=== PATIENT | female | born 1955 | race Caucasian/White ===

== ENCOUNTER 2019-11-29 22:44 | Emergency (ER) | payer MEDICARE ==
[~2019-11-29] VITALS: Ht 152.4 cm; Wt 68.0 kg
[~2019-11-29 22:44] MED LIST: CLARITIN10 M3 PO; Z.0.NEURONTIN100 MG PO
--- OUTSIDE RECORDS SUMMARY | 2019-11-29 22:48 | XMS REPORT ---
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 Allergies, Adverse Reactions, Alerts This patient has no known allergies or adverse reactions. Medications This patient has no known medications.
== END 2019-11-29 23:18 | disposition home or self-care (01) ==
LOC: FSED 22:44
DX: K52.9 Noninfective gastroenteritis and colitis, unspecified (principal); E03.9 Hypothyroidism, unspecified

== ENCOUNTER 2022-04-28 12:26 | Emergency (ER) | payer MEDICARE, OTHER ==
[~2022-04-28] VITALS: Ht 152.4 cm; Wt 63.5 kg
[2022-04-28] MEDS ORDERED: BROMFED DM COU118 ML PO (13:39)
== END 2022-04-28 13:44 | disposition home or self-care (01) ==
LOC: FSED 12:40
DX: R05.9 Cough, unspecified (principal); U07.1 COVID-19; J20.9 Acute bronchitis, unspecified; E03.9 Hypothyroidism, unspecified; Z86.12 Personal history of poliomyelitis
CPT/HCPCS: 71046; 83518; 87400; 99283

== ENCOUNTER 2022-12-12 09:58 | Emergency (ER) | payer MEDICARE, OTHER ==
[~2022-12-12] VITALS: Ht 152.4 cm; Wt 65.8 kg
[~2022-12-12 09:58] MED LIST changes: +BROMFED DM COU118 ML PO
[2022-12-12] MEDS ORDERED: BENZONATATE200 MG PO (10:56)
[2022-12-12] MEDS ORDERED: DEXAMETHASONE SOD PHOS 10 MG/1 ML VIAL IM ONE ×2 (11:00)
[2022-12-12] MEDS ORDERED: DEXAMETHASONE SOD PHOS INJ 4 MG/ML SDV ONE (11:12)
[2022-12-12] MEDS ORDERED: ONDANSETRON ODT4 MG PO (11:20)
[2022-12-12] MEDS ORDERED: ONDANSETRON HCL 4 MG ORAL DISINTEGRATING TAB ONE (11:40)
[2022-12-12] MEDS ORDERED: ONDANSETRON HCL 4 MG ORAL DISINTEGRATING TAB PO ONE (11:45)
== END 2022-12-12 11:45 | disposition home or self-care (01) ==
LOC: FSED 10:39
DX: J06.9 Acute upper respiratory infection, unspecified (principal); B97.89 Other viral agents as the cause of diseases classified elsewhere; J30.2 Other seasonal allergic rhinitis; R05.9 Cough, unspecified; F32.A Depression, unspecified; E03.9 Hypothyroidism, unspecified; G89.29 Other chronic pain; Z86.12 Personal history of poliomyelitis; Z79.899 Other long term (current) drug therapy
CPT/HCPCS: 83518; 87400; 99283; J1100 ×2